=== PATIENT | female | born 1995 | race African-American/Black ===

== ENCOUNTER 2016-08-19 17:11 | Emergency (ER) | payer OTHER ==
[~2016-08-19] VITALS: Ht 154.9 cm; Wt 42.0 kg
[2016-08-19 17:12] VITALS: BP 122/72; PULSE 102; RESP 14; TEMP 97.9; O2SAT 100
--- NOTE | 2016-08-19 17:22 | PD ---
Physical Exam Time Seen by Provider: 17:19 Narrative 20 y/o female who reports she is 6 weeks lmp july [birth year] presents for evaluation of dizziness for 2 days. +spotting. vital signs reviewed. Seen at triage desk. Awaiting bed placement. Data Data Last Documented VS Vital Signs Date Time Temp Pulse Resp B/P Pulse Ox O2 Delivery O2 Flow Rate FiO2 08/19/16 17:12 97.9 102 14 122/72 100 4 MDM Medical Record Reviewed: Yes Supervised Visit with ANDER: Horacio Gonzáles August 19, 2016 17:22
== END 2016-08-19 20:15 | disposition left against medical advice (07) ==
LOC: NED 17:11
DX: R42 Dizziness and giddiness (principal)
CPT/HCPCS: 99281